=== PATIENT | male | born 1995 | race Caucasian/White ===

== ENCOUNTER 2023-02-13 21:59 | Emergency (ER) | payer SELFPAY ==
[2023-02-13 22:50] VITALS: BP 133/82
[2023-02-13 23:20] LABS: BASO% 0.6 % (0-3); EOS% 1.9 % (0-8); HEMATOCRIT 39.2 % (39.0-50.0); HEMOGLOBIN 13.1 g/dl (14.0-18.0); IMMATURE GRANULOCYTES 0.2 % (0.0-5.0); LYMPH% 32.4 % (15-41); MEAN CELL VOLUME 85.8 fL CALC (80.0-100.0); MEAN CORPUSCULAR HGB 28.7 pG CALC (26.0-32.0); MEAN CORPUSCULAR HGB CONC 33.4 g/dL CAL (32.0-36.0); MONO% 7.4 % (2-13); NEUT# 5.53 thou/uL (1.82-7.42); NEUT% 57.5 % (42-76); RED BLOOD COUNT 4.57 mill/uL (4.70-6.10); RED CELL DISTRI WIDTH 12.3 % (11.5-15.5)
[2023-02-13 23:48] LABS: INTERNATIONAL NORMALIZED RATIO 1.1 RATIO (0.7-1.3); PROTHROMBIN TIME 10.7 SECONDS (9.0-12.5)
[2023-02-13 23:50] LABS: ALBUMIN 4.6 g/dL (3.2-5.0); ALKALINE PHOSPHATASE 52 u/l (38-126); AMYLASE 75 u/l (30-110); ANION GAP 13 (6-22 (CALC)); BILIRUBIN, TOTAL 0.3 mg/dL (0.2-1.3); BUN 19 mg/dL (9-20); BUN/CREATININE RATIO 14 (12-20 (CALC)); CARBON DIOXIDE 27 mmol/l (22-30); CHLORIDE 107 mmol/l (95-108); CREATININE 1.3 mg/dL (0.7-1.3); ETHYL ALCOHOL 0 mg/dl (0-30); GFR FOR AFR.AMER. > 60 ML/MIN (>=60 (CALC)); GFR OTHER RACES > 60 ML/MIN (>=60 (CALC)); LIPASE 110 u/l (23-300); POTASSIUM 4.3 mmol/l (3.5-5.1); SGOT/AST 28 u/l (17-59); SODIUM 142 mmol/l (137-146); TOTAL PROTEIN 7.4 g/dL (6.3-8.2)
[2023-02-13 23:54] LABS: URINE BILIRUBIN - DIPSTICK NEGATIVE (NEGATIVE); URINE BLOOD DIPSTICK NEGATIVE (NEGATIVE); URINE COLOR YELLOW; URINE GLUCOSE - DIPSTICK NEGATIVE (NEGATIVE); URINE KETONE TRACE mg/dL (NEGATIVE); URINE LEUK ESTERASE NEGATIVE (NEGATIVE); URINE PROTEIN - DIPSTICK NEGATIVE (NEG-TRACE)
[2023-02-13 23:55] LABS: URINE NITRITE - DIPSTICK NEGATIVE (Negative)
[2023-02-14] MEDS ORDERED: PREVACID30 M1 PO (00:05)
[2023-02-14 00:20] VITALS: BP 133/82
== END 2023-02-14 00:25 | disposition home or self-care (01) | DRG 379 ==
LOC: ED 21:59
PROVIDERS: Emergency Medicine
DX: K62.5 Hemorrhage of anus and rectum (principal)
CPT/HCPCS: S0164

== ENCOUNTER 2024-05-30 15:25 | Emergency (ER) | payer OTHER ==
[~2024-05-30] VITALS: Ht 175.3 cm; Wt 68.0 kg
[~2024-05-30 15:25] MED LIST: BENZONATATE200 MG PO; PREVACID30 M1 PO; ROBITUSSIN AC10 ML PO; ZPAK PO
[2024-05-30 15:30] VITALS: BP 126/85
[2024-05-30 15:46] VITALS: BP 122/79
[2024-05-30] MEDS ORDERED: PENicillin V POTASSIUM 500 MG/TAB PO ONE (15:50)
[2024-05-30] MEDS ORDERED: HYDROcodone 5 MG/Acetaminophen 325 MG/COMBO PO ONE (15:50)
[2024-05-30] MEDS ORDERED: PENICILLN VK500 MG PO (15:50)
[2024-05-30] MEDS ORDERED: KETOROLAC TROMETHAMINE 30 MG/ML SDV IM ONE (15:50)
[2024-05-30] MEDS ORDERED: NAPROXEN500 MG PO (15:50)
[2024-05-30] MEDS ORDERED: TRAMADOL HYDROC50 M1 PO (15:50)
[2024-05-30 16:00] VITALS: BP 107/70
[2024-05-30 16:23] VITALS: BP 107/70
== END 2024-05-30 16:23 | disposition home or self-care (01) ==
LOC: ED 15:25
DX: K04.7 Periapical abscess without sinus (principal)